=== PATIENT | female | born 1990 | race Caucasian/White ===

== ENCOUNTER 2017-04-16 07:48 | Inpatient (IN) ==
[2017-04-16] MEDS ORDERED: Oxytocin 20 units/ LR 1000 mL 20 UNIT/1,000 ML BAG IVC ONE ×2 (07:55→13:04)
[2017-04-16] MEDS ORDERED: Famotidine 20 MG/2 ML VIAL IVP ONE (07:55)
[2017-04-16] MEDS ORDERED: Ringers Solution, Lactated 1,000 ML IVC ONE (07:55)
[2017-04-16] MEDS ORDERED: Metoclopramide 10 MG/2 ML VIAL IVP ONE (07:55)
[2017-04-16] MEDS ORDERED: Ringers Solution, Lactated 1,000 ML IVC SCH (08:00)
[2017-04-16] MEDS ORDERED: Oxytocin 20 units/ LR 1000 mL 20 UNIT/1,000 ML BAG IVC SCH ×2 (08:00→13:04)
[2017-04-16 08:16] LABS: Basophils % 0.3 %; Eosinophils # 0.3 K/mcL (0.0-0.6); Eosinophils % 1.6 %; Hematocrit 37.2 % (35.3-44.9); Hemoglobin 13.1 g/dL (11.5-15.4); Immature Granulocytes % 0.8 % (0-4); Lymphocytes # 2.8 K/mcL (0.6-4.6); Lymphocytes % 17.5 %; Mean Corpuscular HGB Conc 35.2 g/dL (31.6-35.5); Mean Corpuscular Volume 90.7 fL (83.0-100.0); Monocytes # 1.2 K/mcL (0.0-1.3); Monocytes % 7.7 %; Neutrophils # 11.5 K/mcL (1.6-8.9); Platelet Count 237 K/mcL (140-400); Red Cell Distribution Width 12.3 % (11.5-14.5); Segmented Neutrophils % 72.1 %
[2017-04-16] MEDS ORDERED: Ondansetron 4 MG/2 ML VIAL ONE (08:45)
[2017-04-16] MEDS ORDERED: *HR* Oxytocin 10 UNIT/ML VIAL IM ONE (08:45)
[2017-04-16] MEDS ORDERED: *HR* Morphine Sulfate/PF 5 MG/10 ML AMPUL ONE (08:46)
[2017-04-16] MEDS ORDERED: *HR* FentaNYL (PF) 100 MCG/2 ML VIAL ONE (08:46)
[2017-04-16] MEDS ORDERED: EPHEDrine 50 MG/ML VIAL ONE (08:46)
[2017-04-16] MEDS ORDERED: Gentamicin 270 MG in 0.9 % Sodium Chloride 100 ML IVPB ONE (09:03)
[2017-04-16] MEDS ORDERED: Clindamycin 900 MG/50 ML 900 MG/50 ML IV.SOLN IVPB ONE (09:03)
--- NOTE | 2017-04-16 09:05 | OB/GYN History & Physical ---
Date of Encounter: 04/16/17 Time of Encounter: 09:02 Assessment and Plan (1) 39 weeks gestation of Current visit: Yes Status: Chronic (2) History of delivery, currently Current visit: Yes Status: Chronic (3) Breech presentation on examination Current visit: Yes Status: Acute Plan is for repeat section now at 39 3/7 weeks. Risks, benefits, and alternatives have been discussed throughout the . Originally patient wanted to attempt to deliver vaginally until evaluation at term revealed the fetus continued breech at which time she opted for repeat section. Informed consent was obtained at her last visit. No additional questions today. Qualifiers: Fetus number: single or unspecified fetus Qualified Code(s): O32.1XX0 - Maternal care for breech presentation, not applicable or unspecified History of Present Illness Chief complaint: Patient presents for repeat for breech HPI: Ms. Miguel is a 27 year old female G 2 P 1-0-0-1 at 39 3/7 weeks presents for repeat section for breech presentation with history of prior . She denies any labor symptoms. She states the baby has been moving well. Past Med Surg Social Fam HX - Past Medical History Source: patient Medical history: no medical history Psychiatric history: no psych history - Past Surgical History Surgical History: - Social History Smoking Status: Current every day smoker Packs per day: 1/2 PPD Smokeless Tobacco Status: No Alcohol use: none Drug use: none - Family History Maternal Grandmother Hx Family Cardiac Disorders: Yes Hx Family Medical Disorders: Yes (STATES GRANDMOTHER HAD BLOOD CLOT AFTER KNEE SURGERY) Obstetrical History - Pregnancies : 2 Para: 1 Term: 1 : 0 Ab's: 0 Livin Medications and Allergies Vit/Iron Fumarate/FA [ Tablet] 1 each PO DAILY 04/16/17 [ History] Allergies Amoxicillin Allergy (Verified 07/15/16 23:51) Hives Sulfa (Sulfonamide Antibiotics) Adverse Reaction (Verified 07/15/16 23:51) Vomiting Review of System OB ROS unobtainable: due to endotracheal tube All systems PM: reviewed and no additional remarkable complaints except as stated Exam - Constitutional Constitutional: well developed, well nourished, no acute distress, average body habitus - HEENT HEENT: EOMI, Mucus Membranes Moist - Lungs Respiratory exam: CTAB - Cardiovascular Cardiovascular exam: RRR - Abdomen Abdomen: Present: bowel sounds normal, gravid (breech by Carlos's ), non tender - Extremities Extremities exam: warm Results Result Diagrams: 04/16/17 08:08 Abnormal lab results WBC 16.0 K/mcL (4.3-11.1) H 04/16/17 08:08 Neutrophils # 11.5 K/mcL (1.6-8.9) H 04/16/17 08:08 All other labs normal.
--- NOTE | 2017-04-16 09:26 | Anesthesia Evaluation PreOp ---
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: Denies Any Significant HX Other Medical History: Denies Any Significant HX Anesthesia History: No Prior Anesthetic Complications, Past Anesthesia (Prior C/ S w/ SAB) Alcohol Use: none Drug use: none Medications and Allergies Vit/Iron Fumarate/FA [ Tablet] 1 each PO DAILY 04/16/17 [ History] Allergies Amoxicillin Allergy (Verified 07/15/16 23:51) Hives Sulfa (Sulfonamide Antibiotics) Adverse Reaction (Verified 07/15/16 23:51) Vomiting - Meds/Allergy Pre-op Review Medications Reviewed: Yes Allergies Reviewed: Yes Beta Blockers on Current Med List: No Anesthesia Results - Labs 04/16/17 08:08 Anesthesia Exam Height: 5'1" Weight: 135# BMI = 25.6 NPO (# of Hours): MNOc - HEENT Pupil (Motor): Pupils equal, EOMI Mallampati: II Teeth: Normal Oral Opening: Greater than 3 - 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 LOC: Oriented 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 Stefano Dong MD
[2017-04-16] MEDS ORDERED: *HR* HYDROmorphone (PF) 1 MG/ML SYRINGE IVP PRN ×2 (09:29→12:30)
[2017-04-16] MEDS ORDERED: Ibuprofen 400 MG TABLET PO PRN (09:29)
[2017-04-16] MEDS ORDERED: *HR* OxyCODONE/APAP 5/325 TABLET PO PRN (09:29)
[2017-04-16] MEDS ORDERED: Naloxone 0.4 MG/ML INJ IVP PRN (09:29)
[2017-04-16] MEDS ORDERED: *HR* Morphine 2 MG/ML SYRINGE IVP PRN (09:29)
[2017-04-16] MEDS ORDERED: Ondansetron 4 MG/2 ML VIAL IVP PRN (09:29)
[2017-04-16] MEDS ORDERED: Acetaminophen IV 1,000 MG/100 ML INFUS..BTL IVPB ONE (09:35)
[2017-04-16] MEDS ORDERED: Ringers Solution, Lactated 1,000 ML ONE (10:07)
--- NOTE | 2017-04-16 10:51 | OB/GYN Procedure Note ---
Section - Date of procedure: 04/16/17 Preop diagnosis: desires repeat , breech Post-op diagnosis: same Procedure: section, repeat low transverse Surgeon: Sayda Almeida Estimated blood loss (cc): 500 Gift Packer: Manisha Arciniega Anesthesiologist: Mayte [employer] Teacher: John Mcginnis Anesthesia Type: Spinal section complications: none Disposition: L&D Recovery Room Specimens: Placenta, Cord segment - (s) Infant A Infant Delivery Date: 04/16/17 Delivery Time: 09:14 Presentation: sheridan breech Gender: Male Viability: Viable Pounds: 6 Ounces: 5 at 1 minute: 8 at 5 minutes: 9 Placenta: spontaneous Cord: 3 umbilical vessels - Narrative Narrative: Patient was taken to the operative suite and placed under spinal anesthetic. She was then prepped and draped in normal sterile fashion in the dorsal supine position. Timeout was then performed. Antibiotics were given at room time. SCDs are on and active. Pfannenstiel skin incision is then made and carried through to underlying layer of fascia with the Bovie. The fascia was then incised in the midline and incision extended laterally with the New scissors. The fascia was tented up and dissected off the rectus muscles sharply. The rectus muscles were in the midline and the peritoneum was tented up and entered sharply with the Metzenbaum scissors. The peritoneal incision was then extended bluntly. The bladder blade was then inserted. A low transverse uterine incision was then made. The infant breech was brought to the incision and the was delivered using fundal pressure. There was no nuchal cord. Cord was clamped and cut. was handed to waiting nursery staff. Placenta delivered spontaneously complete and intact with a three-vessel cord. The uterus was cleared of all clots and debris using moist laparotomy sponge. The uterine incision was then closed using 0 Vicryl in a running locked fashion. A second layer of the same suture was used to obtain excellent hemostasis. The abdomen was then cleared of all clots and debris using irrigation. A piece of Interceed was placed over the uterine incision and anterior uterine serosa. The fascial incision was then closed using 0 Vicryl in a running fashion. The skin was closed using 4-0 Vicryl in a subcuticular fashion. Steri-Strips and sterile dressing are then placed. Mother and infant taken to recovery in stable condition.
--- NOTE | 2017-04-16 12:50 | Anesthesia Evaluation Post Op ---
Date of Encounter: 04/16/17 Time of Encounter: 12:15 - Lungs Lungs: Clear Ascult./Percussion - Airway Airway: Non-obstructed - Cardiovascular Regular Rate, Baseline Rhythm - Mental Status Mental Status: Alert & Oriented, Answers Appropriately - Pain Pain Scale: 0 Pain Scale used: Numeric (1 - 10) - Nausea Vomiting Nausea Vomiting: Not Present - Hydration Hydration: NPO - Discharge PostOp Status: Transfer Patient to floor
[2017-04-16] MEDS ORDERED: Acetaminophen 325 MG TABLET PO PRN (13:04)
[2017-04-16] MEDS ORDERED: Metoclopramide 10 MG/2 ML VIAL IVP PRN (13:04)
[2017-04-16] MEDS ORDERED: Sennosides 8.6 MG TABLET PO PRN (13:04)
[2017-04-16] MEDS ORDERED: Simethicone 80 MG TAB.CHEW PO PRN (13:04)
[2017-04-16] MEDS: Ibuprofen 600 MG TABLET PO PRN (20:24)
[2017-04-17] MEDS: Ibuprofen 600 MG TABLET PO PRN ×3 (03:55→22:00)
--- NOTE | 2017-04-17 06:46 | OB/GYN Progress Note ---
Date of Encounter: 04/17/17 Time of Encounter: 06:42 - Assessment and Plan (1) delivery delivered Current Visit: Yes Status: Acute Stable in post . Meeting milestones. Continue current management plan. Anticipate DC tomorrow. Subjective - Subjective Patient reports: appetite normal, voiding normally, pain well controlled, ambulating normally [place]: doing well Objective - Vital Signs Latest vital signs: Vital Signs Temp Pulse Pulse Resp BP Pulse Ox 04/17/17 04:04 97.6 F 94 16 107/70 97 04/17/17 00:30 98.2 F 83 14 106/65 97 04/16/17 20:20 14 04/16/17 19:45 97.9 F 89 14 114/71 97 04/16/17 15:54 97.8 F 82 100 16 111/68 04/16/17 15:45 97.8 F 82 16 111/68 04/16/17 14:45 97.6 F 96 100 16 124/77 04/16/17 13:45 97.9 F 99 100 16 111/64 97 04/16/17 13:15 97.6 F 80 80 16 114/72 97 04/16/17 13:10 97.6 F 79 16 107/69 96 04/16/17 12:45 80 16 Intake and Output 04/16/17 04/16/17 04/17/17 15:59 23:59 07:59 Intake Total 1000 / 1000 800 / 800 Output Total 900 / 900 1050 / 1050 1100 / 1100 Balance 100 / 100 -1050 / -1050 -300 / -300 Intake: IV Fluids 1000 / 1000 Lactated Ringers 1,000 ML 1000 / 1000 @ 3750 mls/hr IVC .Q16M ONE Rx#:[id number] Oral 800 / 800 Output: Urine 1100 / 1100 Catheter 900 / 900 1050 / 1050 Other: Weight 61.5 kg 60.419 kg Patient Weight 04/17/17 23:59 Weight 60.419 kg - Exam Lungs: bilateral: normal Chest: Normal S1, Normal S2 Extremities: Present: normal Abdomen: Present: normal appearance, soft Incision: Present: dry, dressed Uterus: Present: firm - Labs Labs: Laboratory Results - last 24 hr 04/16/17 08:08 WBC 16.0 H RBC 4.10 Hgb 13.1 Hct 37.2 MCV 90.7 MCH 32.0 MCHC 35.2 RDW 12.3 Plt Count 237 MPV 11.0 Immature Gran % 0.8 Seg Neutrophils % 72.1 Lymphocytes % 17.5 Monocytes % 7.7 Eosinophils % 1.6 Basophils % 0.3 Neutrophils # 11.5 H Lymphocytes # 2.8 Monocytes # 1.2 Eosinophils # 0.3 Basophils # 0.0
[2017-04-17] MEDS: Prenatal Vit/FA 1 EACH TABLET PO SCH (08:00)
[2017-04-17] MEDS: *HR* OxyCODONE/APAP 5/325 TABLET PO PRN ×3 (10:27→19:34)
[2017-04-18] MEDS: *HR* OxyCODONE/APAP 5/325 TABLET PO PRN ×3 (00:45→10:23)
[2017-04-18] MEDS: Ibuprofen 600 MG TABLET PO PRN ×2 (04:13→11:09)
--- NOTE | 2017-04-18 08:10 | Discharge Summary ---
Date of Encounter: 04/18/17 Time of Encounter: 08:08 - Discharge Diagnosis (1) Breech presentation on examination Priority: Secondary Status: Resolved Qualifiers: Fetus number: single or unspecified fetus Qualified Code(s): O32.1XX0 - Maternal care for breech presentation, not applicable or unspecified (2) delivery delivered Priority: Primary Status: Resolved (3) 39 weeks gestation of Priority: Secondary Status: Resolved (4) History of delivery, currently Priority: Secondary Status: Resolved - Discharge Medications Prescriptions: OxyCODONE/APAP 5/325 [Percocet 5/325 MG] 1 each PO Q4HR PRN #40 tablet PRN Reason: Moderate pain 4-6 Ibuprofen [Motrin] 600 mg PO Q6HR PRN #40 tablet PRN Reason: Cramping Home Medications: Vit/Iron Fumarate/FA [ Tablet] 1 each PO DAILY 04/16/17 [ History] Ibuprofen [Motrin] 600 mg PO Q6HR PRN #40 tablet 04/18/17 [Rx] OxyCODONE/APAP 5/325 [Percocet 5/325 MG] 1 each PO Q4HR PRN #40 tablet 04/18/17 [Rx] Allergies/Adverse Reactions: Allergies Amoxicillin Allergy (Verified 07/15/16 23:51) Hives Sulfa (Sulfonamide Antibiotics) Adverse Reaction (Verified 07/15/16 23:51) Vomiting Data Procedures and tests throughout hospitalization: Laboratory Tests 04/16/17 08:08 WBC 16.0 H RBC 4.10 Hgb 13.1 Hct 37.2 MCV 90.7 MCH 32.0 MCHC 35.2 RDW 12.3 Plt Count 237 MPV 11.0 Immature Gran % 0.8 Seg Neutrophils % 72.1 Lymphocytes % 17.5 Monocytes % 7.7 Eosinophils % 1.6 Basophils % 0.3 Neutrophils # 11.5 H Lymphocytes # 2.8 Monocytes # 1.2 Eosinophils # 0.3 Basophils # 0.0 Date of admission: 04/16/17 07:48 Consults: 04/16/17 13:04 Consult to Resource Program Teacher (W&C) [CONS] Routine Reason For Exam: Reason for SW Consult: Patient does not have custody of her first child. - Patient Status Disposition: Home, Self-Care Condition: Good Functional capacity at discharge: independent ambulation Overall status at discharge: patient is progressing back to baseline - Discharge Instructions - Diet and Activity Activity: increase activity as tolerated Diet: advance to your usual diet Hospital Course Time Attestation: Total time spent providing and/or coordinating discharge services: - VTE Documentation of Mechanical Device: Intermittent pneumatic compression device - Attending Attestation vishnu spence md facog Exam - Constitutional Vitals: Temp Pulse Resp BP Pulse Ox 97.7 F 86 14 113/73 98 04/17/17 19:30 04/17/17 19:30 04/17/17 19:30 04/17/17 19:30 04/17/17 19:30 General appearance IM: A&O X 3 - Respiratory Respiratory exam: Present: CTAB - Cardiovascular Cardiovascular exam IM: Present: RRR - GI/Abdominal GI/Abdominal exam IM: normal bowel sounds, soft Incision: normal, intact - Uterus Position: 2 Fingers Below Umbilicus - Extremities Exam Extremities exam IM: Present: full ROM - Neurological Exam Neurological exam: CN II-XII intact
[2017-04-18] MEDS: Prenatal Vit/FA 1 EACH TABLET PO SCH (09:06)
[2017-04-18 09:18] VITALS: BP 106/67
== END 2017-04-18 14:25 | disposition home or self-care (01) | DRG 540 ==
LOC: 1NENULAB 07:48 → 1NENUOBS 13:03
PROVIDERS: ADMIT Obstetrics & Gynecology; ATTEND Obstetrics & Gynecology